=== PATIENT | male | born 1985 | race Caucasian/White ===

== ENCOUNTER 2022-07-17 09:49 | Emergency (ER) | payer OTHER ==
[~2022-07-17] VITALS: Ht 175.3 cm; Wt 98.0 kg
[2022-07-17 09:54] VITALS: BP 132/86
[2022-07-17] MEDS ORDERED: DOXY-326 MT (10:37)
[2022-07-17] MEDS ORDERED: NAPR-1176 MT (10:37)
== END 2022-07-17 11:32 | disposition home or self-care (01) ==
LOC: ER 10:38
DX: M71.521 Other bursitis, not elsewhere classified, right elbow (principal)
CPT/HCPCS: 73080; 99283